=== PATIENT | female | born 1930 | race Native Hawaiian/Other Pacific Islander ===

== ENCOUNTER 2016-07-23 15:38 | Emergency (ER) | payer OTHER ==
[~2016-07-23] VITALS: Ht 162.6 cm; Wt 41.7 kg
[2016-07-23 17:36] LABS: PLATELET COUNT 225 K/uL (152-353)
[2016-07-23 17:45] LABS: POTASSIUM 3.6 mmol/L (3.6-5.2); SODIUM 138 mmol/L (136-145)
[2016-07-23 18:54] VITALS: BP 128/68; TEMP 98.1
== END 2016-07-23 18:55 | disposition home or self-care (01) ==
LOC: ED 15:38
DX: M47.896 Other spondylosis, lumbar region (principal); R22.2 Localized swelling, mass and lump, trunk; W18.39XA Other fall on same level, initial encounter; Y92.098 Other place in other non-institutional residence as the place of occurrence of the external cause
CPT/HCPCS: 36415; 80053; 85027; 99283

== ENCOUNTER 2017-01-16 15:15 | Observation (INO) | payer OTHER ==
[~2017-01-16] VITALS: Ht 152.4 cm; Wt 40.0 kg
[2017-01-16 21:54] LABS: PLATELET COUNT 272 K/uL (152-353)
[2017-01-16 22:20] LABS: POTASSIUM 4.1 mmol/L (3.6-5.2)
[2017-01-17 02:17] VITALS: BP 174/86; TEMP 100.3; Ht 152.4 cm; Wt 40.0 kg
[2017-01-17 04:00] VITALS: BP 171/77; TEMP 98
[2017-01-17 06:06] LABS: PLATELET COUNT 264 K/uL (152-353)
--- NOTE | 2017-01-17 06:38 | NUR ---
PT HAS BEEN CONFUSED MOST OF THE NIGHT. PT IS [place] AND IT IS DIFFICULT FOR PT TO UNDERSTAND. REORIENTED PT SEVERAL TIMES OF HER SITUATION AND SHE VOICED UNDERSTANDING. 2000PM ON 01/16/17 IV WAS STARTED TO HER RIGHT WRIST AND BLOOD WAS DRAWN FOR LAB. 22 GAUGE X 1 STICK. PT WAS ASSISTED UP OUT OF BED TO [facility] AND VOIIDED 500 ML. URINE WAS COLLECTED AND SENT TO LAB. ASSESSESSMENT WAS COMPLETED. PT NOT ABLE TO GIVE COMPLETE AND GOOD HISTORY. PT RECEIVED 500 ML BOLUS OF NS. AFTER COMPLETION OF BOLUS NS WAS STARTED AT 100 ML PER HOUR. SR ARE PLACE UP AND BED ALARM IS SET.
[2017-01-17 08:00] VITALS: BP 167/93; TEMP 98.6
[2017-01-17 09:01] LABS: POTASSIUM 3.4 mmol/L (3.6-5.2); SODIUM 139 mmol/L (136-145)
--- NOTE | 2017-01-17 09:30 | NUR ---
PT VERY CONFUSED AND IRRITATED. PT NOT FOLLJOWING SIMPLE COMMANDS. PT WILL NOT STAY IN BED. MD NOTIFIED, NEW ORDERS GIVEN.
[2017-01-17 12:00] VITALS: BP 123/58; TEMP 98.8
[2017-01-17 16:00] VITALS: BP 152/61; TEMP 98.6
[2017-01-17 20:00] VITALS: BP 170/75; TEMP 98.5
[2017-01-18] VITALS: BP 140/70; TEMP 98.6
[2017-01-18 04:00] VITALS: BP 158/68; TEMP 98
[2017-01-18 06:12] LABS: POTASSIUM 3.2 mmol/L (3.6-5.2); SODIUM 141 mmol/L (136-145)
[2017-01-18 06:39] LABS: PLATELET COUNT 257 K/uL (152-353)
[2017-01-18 08:00] VITALS: BP 168/71; TEMP 98
[2017-01-18] MEDS ORDERED: CARB25TA29 PO (11:17)
[2017-01-18] MEDS ORDERED: FLUD0.1T PO ×2 (11:18)
[2017-01-18 12:00] VITALS: BP 168/84; TEMP 98.3
--- NOTE | 2017-01-18 14:00 | NUR ---
SNACKS PROVIDED TO PT AT THIS TIME PER REQUEST AND 100% EATEN AT THIS TIME.
[2017-01-18 16:00] VITALS: BP 164/80; TEMP 98
[2017-01-18 20:00] VITALS: BP 152/69; TEMP 98.6
[2017-01-19] VITALS: BP 112/49; TEMP 98.6
[2017-01-19 04:10] VITALS: BP 136/69; TEMP 98.1
[2017-01-19 05:43] LABS: POTASSIUM 4.1 mmol/L (3.6-5.2); SODIUM 138 mmol/L (136-145)
[2017-01-19 06:06] LABS: PLATELET COUNT 237 K/uL (152-353)
[2017-01-19 08:00] VITALS: BP 164/81; TEMP 98.4
--- NOTE | 2017-01-19 09:32 | NUR ---
CRUSHED MEDS ORDERED AND PT TOOK WITHOUT DIFFICULTY.
[2017-01-19 12:00] VITALS: BP 144/66; TEMP 97.8
--- NOTE | 2017-01-19 15:07 | NUR ---
PT TO BE NPO AFTER MN FOR PEG TUBE PLACEMENT IN AM.
[2017-01-19 15:55] VITALS: BP 162/82; TEMP 99
[2017-01-19 20:00] VITALS: BP 165/84; TEMP 98.8
[2017-01-20] VITALS (12 sets, daily range): BP systolic 110–174; BP diastolic 60–82; TEMP 97.4–98.4
[2017-01-20 05:52] LABS: POTASSIUM 3.6 mmol/L (3.6-5.2); SODIUM 138 mmol/L (136-145)
[2017-01-20 06:39] LABS: PLATELET COUNT 262 K/uL (152-353)
--- NOTE | 2017-01-20 08:04 | NUR ---
0800 PT TO OR VIA BED. DAUGHTER AT BS. MO DISTRESS NOTED.
--- NOTE | 2017-01-20 16:05 | NUR ---
1545 ALL DISCHARGE INSTRUCTIONS AND RXS GIVEN AND EXPLASINED TO PT'S DAUGHTER. DAUGHTER VERBALZIED UNDERSTANDING, REFERRAL FOR HOME HEALTH TO [facility] MADE PER UR. DAUGHTER AWARE.
== END 2017-01-20 15:57 | disposition home or self-care (01) ==
LOC: MED/SURG 15:15
PROVIDERS: ADMIT Family Medicine
PROC: 0DH63UZ Insertion of Feeding Device into Stomach, Percutaneous Approach (ICD-10-PCS; principal; 2017-01-20)
DX: E86.0 Dehydration (principal); N39.0 Urinary tract infection, site not specified; R41.82 Altered mental status, unspecified; F28 Other psychotic disorder not due to a substance or known physiological condition; R62.7 Adult failure to thrive; G20 Parkinson's disease
CPT/HCPCS: 36415; 36591; 80048; 80053; 81000; 82607; 83735; 84443; 85027; 96365; 96366; 96367; 96372; 99220; G0378; G0379; J2001; J2704; J3010; J3420; J3486

== ENCOUNTER 2017-01-20 19:33 | Outpatient (CLI) | payer OTHER ==
[~2017-01-20 19:33] MED LIST: CARB25TA29 PO; FLUD0.1T PO
== END 2017-01-20 19:36 | disposition short-term general hospital (02) ==
LOC: AMB 19:33
DX: R07.89 Other chest pain (principal); R68.84 Jaw pain; R10.84 Generalized abdominal pain
CPT/HCPCS: A0425; A0427

== ENCOUNTER 2017-01-20 19:46 | Emergency (ER) | payer OTHER ==
[~2017-01-20] VITALS: Ht 152.4 cm; Wt 36.3 kg
[2017-01-20 19:38] VITALS: TEMP 97.6
[2017-01-20 21:18] VITALS: BP 132/68
== END 2017-01-20 21:20 | disposition home or self-care (01) ==
LOC: ED 19:46
DX: R10.84 Generalized abdominal pain (principal); R14.3 Flatulence; Z93.1 Gastrostomy status
CPT/HCPCS: 93005; 96365; 99284; J1885

== ENCOUNTER 2017-02-27 10:11 | Outpatient (CLI) | payer OTHER ==
[2017-02-27 10:40] LABS: PLATELET COUNT 310 K/uL (152-353)
[2017-02-27 11:02] LABS: POTASSIUM 3.5 mmol/L (3.6-5.2); SODIUM 142 mmol/L (136-145)
== END 2017-02-27 19:01 | disposition home or self-care (01) ==
LOC: LABW 10:11
PROVIDERS: Internal Medicine
DX: G20 Parkinson's disease (principal); R63.8 Other symptoms and signs concerning food and fluid intake; E55.9 Vitamin D deficiency, unspecified; Z79.899 Other long term (current) drug therapy; Z51.81 Encounter for therapeutic drug level monitoring
CPT/HCPCS: 36415; 80053; 81000; 82306; 82607; 84443; 85027; 87086; 87088

== ENCOUNTER 2017-04-13 13:14 | Emergency (ER) | payer OTHER ==
[~2017-04-13] VITALS: Ht 162.6 cm; Wt 41.7 kg
[2017-04-13 13:25] VITALS: TEMP 98.2
[2017-04-13 15:15] VITALS: BP 142/70
== END 2017-04-13 15:30 | disposition home or self-care (01) ==
LOC: ED 13:14
DX: S92.315A Nondisplaced fracture of first metatarsal bone, left foot, initial encounter for closed fracture (principal); W20.8XXA Other cause of strike by thrown, projected or falling object, initial encounter; Y92.89 Other specified places as the place of occurrence of the external cause
CPT/HCPCS: 99283

== ENCOUNTER 2017-05-30 13:16 | Emergency (ER) | payer OTHER ==
[~2017-05-30] VITALS: Ht 121.9 cm; Wt 41.7 kg
[2017-05-30 13:27] VITALS: TEMP 98.4
[2017-05-30 14:12] LABS: PLATELET COUNT 305 K/uL (152-353)
[2017-05-30 14:22] LABS: POTASSIUM 3.9 mmol/L (3.6-5.2); SODIUM 140 mmol/L (136-145)
[2017-05-30 15:49] VITALS: BP 154/74
== END 2017-05-30 15:49 | disposition home or self-care (01) ==
LOC: ED 13:16
PROVIDERS: Emergency Medicine
DX: L03.116 Cellulitis of left lower limb (principal)
CPT/HCPCS: 36415; 80053; 82550; 82553; 83605; 84484; 85027; 85651; 93005; 99283

== ENCOUNTER 2017-08-23 09:42 | Outpatient (CLI) | payer OTHER | END 2017-08-23 21:47 | disposition home or self-care (01) | LOC: LABW 09:42 | DX: R30.0 Dysuria (principal) | CPT/HCPCS: 81000 ==

== ENCOUNTER 2017-10-11 14:31 | Outpatient (CLI) | payer OTHER | END 2017-10-11 19:32 | disposition home or self-care (01) | LOC: LAB 14:31 | DX: R30.0 Dysuria (principal) | CPT/HCPCS: 81000 ==

== ENCOUNTER 2018-03-20 09:05 | Outpatient (CLI) | payer OTHER ==
[2018-03-20 09:41] LABS: PLATELET COUNT 286 K/uL (152-353)
[2018-03-20 10:26] LABS: POTASSIUM 3.9 mmol/L (3.6-5.2)
== END 2018-03-20 22:22 | disposition home or self-care (01) ==
LOC: LABW 09:05
PROVIDERS: Internal Medicine
DX: I10 Essential (primary) hypertension (principal); G20 Parkinson's disease; E53.8 Deficiency of other specified B group vitamins
CPT/HCPCS: 36415; 80053; 80061; 81000; 82607; 84439; 84443; 85027

== ENCOUNTER 2018-11-08 09:18 | Outpatient (CLI) | payer OTHER | END 2018-11-08 23:44 | disposition home or self-care (01) | LOC: LAB 09:18 | DX: R35.8 Other polyuria (principal); R30.0 Dysuria | CPT/HCPCS: 81000; 87077; 87086; 87088; 87186 ==

== ENCOUNTER 2019-03-27 09:44 | Outpatient (CLI) | payer OTHER | END 2019-03-27 22:26 | disposition home or self-care (01) | LOC: LABW 09:44 | DX: N39.0 Urinary tract infection, site not specified (principal) | CPT/HCPCS: 81000 ==

== ENCOUNTER 2019-03-29 13:30 | Emergency (ER) | payer OTHER ==
[~2019-03-29] VITALS: Ht 157.5 cm; Wt 45.4 kg
[2019-03-29 13:30] VITALS: TEMP 98.2
[2019-03-29 15:30] VITALS: BP 150/68
== END 2019-03-29 16:00 | disposition home or self-care (01) ==
LOC: ED 13:30
PROC: 0HQ0XZZ Repair Scalp Skin, External Approach (ICD-10-PCS; principal; 2019-03-29)
DX: S01.01XA Laceration without foreign body of scalp, initial encounter (principal); W01.190A Fall on same level from slipping, tripping and stumbling with subsequent striking against furniture, initial encounter; Z91.81 History of falling; Y92.89 Other specified places as the place of occurrence of the external cause
CPT/HCPCS: 90715; 99283

== ENCOUNTER 2019-06-07 12:34 | Outpatient (CLI) | payer OTHER | END 2019-06-07 21:20 | disposition home or self-care (01) | LOC: LAB 12:34 | DX: R30.0 Dysuria (principal); R82.90 Unspecified abnormal findings in urine; R46.89 Other symptoms and signs involving appearance and behavior | CPT/HCPCS: 81000; 87077; 87086; 87088; 87186 ==

== ENCOUNTER 2019-07-24 10:00 | Outpatient (CLI) | payer OTHER | END 2019-07-24 19:24 | disposition home or self-care (01) | LOC: LAB 10:00 | DX: N39.0 Urinary tract infection, site not specified (principal) | CPT/HCPCS: 81000 ==

== ENCOUNTER 2019-12-11 11:14 | Outpatient (CLI) | payer OTHER | END 2019-12-11 20:31 | disposition home or self-care (01) | LOC: LAB 11:14 | DX: R30.0 Dysuria (principal) | CPT/HCPCS: 81000 ==